=== PATIENT | male | born 1945 | race African-American/Black ===

== ENCOUNTER 2024-02-15 08:12 | Outpatient (CLI) | payer MEDICARE, OTHER ==
[~2024-02-15] VITALS: Ht 180.3 cm; Wt 84.4 kg
[2024-02-15] VITALS (11 sets, daily range): BP systolic 146–161; BP diastolic 73–86; PULSE 73–87; RESP 14–18; O2SAT 99–100
[2024-02-15] MEDS ORDERED: normal saline 500ml IV soln 500 ML IV ONE (09:25)
[2024-02-15] MEDS ORDERED: metoprolol tartrate 1mg/ml inj IV PRN (09:25)
[2024-02-15] MEDS ORDERED: nitroGLYCERIN 0.4mg SUBLingual tab SL PRN (09:25)
[2024-02-15] MEDS: regadenoson 0.4mg/5ml syringe IV ONE (10:56)
[2024-02-15] MEDS: aminophylline 250mg/10ml inj. IV PRN (10:56)
[2024-02-15] MEDS ORDERED: CARV25TA3 PO (12:46)
[2024-02-15] MEDS ORDERED: ROSU20TA73 PO (12:46)
[2024-02-15] MEDS ORDERED: FEBU80TA6 PO (12:46)
[2024-02-15] MEDS ORDERED: ACET-1025 PO (12:46)
[2024-02-15] MEDS ORDERED: FURO20TA4 PO (12:46)
[2024-02-15] MEDS ORDERED: HYDR100T12 PO (12:46)
[2024-02-15] MEDS ORDERED: PANT40TA54 PO (12:46)
[2024-02-15] MEDS ORDERED: DICLOFENAC (12:46)
[2024-02-15] MEDS ORDERED: FLUT1BLS9 (12:46)
== END 2024-02-15 23:59 | disposition home or self-care (01) ==
LOC: NM 08:12
PROVIDERS: ATTEND Internal Medicine Cardiovascular Disease
DX: R94.31 Abnormal electrocardiogram [ECG] [EKG] (principal)
CPT/HCPCS: 78452; 93017; A9500; J0280; J2785; J7040

== ENCOUNTER 2024-02-22 06:18 | Day surgery (SDC) | payer MEDICARE, OTHER ==
[2024-02-22] VITALS (11 sets, daily range): BP systolic 134–155; BP diastolic 67–94; PULSE 69–82; RESP 9–19; TEMP 96.9; O2SAT 95–100
[~2024-02-22] VITALS: Ht 180.3 cm; Wt 82.0 kg
[2024-02-22] MEDS: cefazolin 2gm/D5W 100mL 100 ML IV ONE (05:30)
[2024-02-22] MEDS: tranexamic acid inj. 1,000 MG in normal saline IV soln 100ML IV ONE (05:30)
[~2024-02-22 06:18] MED LIST: ACET-1025 PO; CARV25TA3 PO; DICLOFENAC; DOCUMENT DATE & TIME OF BETA-BLOCKER PO ONE; FEBU80TA6 PO; FLUT1BLS9; FURO20TA4 PO; HYDR100T12 PO; PANT40TA54 PO; ROSU20TA73 PO
[2024-02-22] MEDS ORDERED: oxymetazoline 15 ML nasal spray NS ONE (06:43)
[2024-02-22] MEDS ORDERED: cocaine 4% topical solution 4ml bottle ONE (06:43)
[2024-02-22] MEDS ORDERED: LIDOcaine 1% W/epiNEPHrine 1:100,000 20ml vial ONE (06:43)
[2024-02-22] MEDS ORDERED: Thrombin (Bovine) 5,000 unit vial TP ONE (06:44)
[2024-02-22] MEDS ORDERED: mupirocin 2% ointment 22GM ONE (06:44)
[2024-02-22] MEDS ORDERED: epiNEPHrine 1 mg/ml 30ml MDV ONE (06:45)
[2024-02-22] MEDS: ringers solution, lacted 1,000 ML IV SCH (07:14)
[2024-02-22] MEDS: famotidine 20mg tablet PO ONE (07:14)
[2024-02-22] MEDS: oxymetazoline 15 ML nasal spray NS SCH (07:41)
[2024-02-22] MEDS ORDERED: fentaNYL/PF 50MCG/1 ML 2ML syringe ONE (08:30)
[2024-02-22] MEDS: LIDOcaine 1% W/epiNEPHrine 1:100,000 20ml vial IJ ONE (08:30)
[2024-02-22] MEDS ORDERED: sevoflurane 250ml liquid IH ONE (08:40)
[2024-02-22] MEDS ORDERED: morphine 2 MG/ML inj. syringe IV PRN (10:20)
[2024-02-22] MEDS ORDERED: proCHLORperazine 10 MG/2 ml inj IV PRN (10:20)
[2024-02-22] MEDS ORDERED: meperidine/PF 25mg/ml syringe IV PRN ×2 (10:20)
[2024-02-22] MEDS ORDERED: morphine 4 MG/ML inj SYRINge IV PRN (10:20)
[2024-02-22] MEDS ORDERED: ringers solution, lacted 1,000 ML IV SCH (10:20)
[2024-02-22] MEDS ORDERED: labetalol 20mg/4ml (5mg/ml) syringe IV PRN (10:20)
[2024-02-22] MEDS ORDERED: ondansetron/PF 4mg/2ml inj IV PRN (10:20)
[2024-02-22] MEDS ORDERED: enalaprilat dihydrate 2.5mg/2ml vial IV PRN (10:20)
[2024-02-22] MEDS: meperidine/PF 25mg/ml syringe IV PRN (10:47)
[2024-02-22] MEDS: mupirocin 2% nasal ointment 1gm UD NS ONE (11:45)
[2024-02-22] MEDS: salt irrigation nasal spray 45 ML SPRAY NS PRN (11:45)
[2024-02-22] MEDS ORDERED: mupirocin 2% nasal ointment 1gm UD NS SCH (20:00)
== END 2024-02-22 11:55 | disposition home or self-care (01) ==
LOC: PAS 06:18
PROVIDERS: ATTEND Otolaryngology
DX: J32.0 Chronic maxillary sinusitis (principal); J32.2 Chronic ethmoidal sinusitis; I10 Essential (primary) hypertension; E78.5 Hyperlipidemia, unspecified; J45.909 Unspecified asthma, uncomplicated; I25.2 Old myocardial infarction; M10.9 Gout, unspecified; I42.9 Cardiomyopathy, unspecified; M19.90 Unspecified osteoarthritis, unspecified site; Z85.46 Personal history of malignant neoplasm of prostate; Z79.899 Other long term (current) drug therapy; Z95.810 Presence of automatic (implantable) cardiac defibrillator; Z98.41 Cataract extraction status, right eye; Z98.42 Cataract extraction status, left eye; Z98.890 Other specified postprocedural states; Z88.2 Allergy status to sulfonamides
CPT/HCPCS: 31240; 31253; 31267; 82948; 87070; 87075; 87102; A4618; A6402; A7000; J0171; J0690; J1100; J2175; J2405; J2704; J3010; J3490; J7030; J7050; J7120; Z7506; Z7508; Z7512; Z7610; A6449

== ENCOUNTER 2025-06-05 08:01 | Day surgery (SDC) | payer MEDICARE, OTHER ==
[~2025-06-05] VITALS: Ht 180.3 cm; Wt 81.3 kg
[2025-06-05] VITALS (11 sets, daily range): BP systolic 120–148; BP diastolic 75–79; PULSE 68–73; RESP 10–16; TEMP 97; O2SAT 95–100
[2025-06-05] MEDS: tranexamic acid 1gm/0.7% sal. 100 ML IV ONE (05:30)
[2025-06-05] MEDS: DOCUMENT DATE & TIME OF BETA-BLOCKER PO ONE (05:30)
[2025-06-05] MEDS: ceFAZolin 2gm/dext,iso 50mL 50 ML IV ONE (05:30)
[~2025-06-05 08:01] MED LIST changes: -ACET-1025 PO; +AMIO200T76 PO; -DOCUMENT DATE & TIME OF BETA-BLOCKER PO ONE; -FEBU80TA6 PO; -FLUT1BLS9; +FLUT1BLS9 PO; +LIDOcaine 1% W/epiNEPHrine 1:100,000 20ml vial ONE; -ROSU20TA73 PO; +ROSU20TA98 PO; +epiNEPHrine 1 mg/ml 30ml MDV ONE; +methylPREDNISolone acetate 80mg/ml inj**IM only ONE; +oxymetazoline 15 ML nasal spray NS ONE
[2025-06-05] MEDS ORDERED: LIDOcaine 1% W/epiNEPHrine 1:100,000 20ml vial ONE (08:58)
[2025-06-05] MEDS ORDERED: epiNEPHrine 1 mg/ml 30ml MDV ONE (09:01)
[2025-06-05] MEDS ORDERED: oxymetazoline 15 ML nasal spray NS ONE (09:05)
[2025-06-05] MEDS: ringers solution, lacted 1,000 ML IV SCH (09:44)
[2025-06-05] MEDS: oxymetazoline 15 ML nasal spray NS SCH (09:54)
[2025-06-05] MEDS ORDERED: fentaNYL/PF 50MCG/1 ML 2ML syringe ONE (10:18)
[2025-06-05] MEDS ORDERED: dexamethasone sod phosphate 4mg/ml inj. ONE (10:36)
[2025-06-05] MEDS ORDERED: ondansetron/PF 4mg/2ml inj ONE (10:36)
[2025-06-05] MEDS ORDERED: midazolam 1 mg/ML 2ml injection ONE (10:36)
[2025-06-05] MEDS ORDERED: LIDOcaine 2% (20mg/ml) 5ml vial ONE (10:36)
[2025-06-05] MEDS ORDERED: propofol inj 20 ML IV ONE (10:36)
[2025-06-05] MEDS ORDERED: ePHEDrine 50MG/ML INJ. ONE (11:29)
[2025-06-05] MEDS ORDERED: hydrALAZINE 20mg/ml inj. IV PRN (11:45)
[2025-06-05] MEDS ORDERED: ondansetron/PF 4mg/2ml inj IV PRN (11:45)
[2025-06-05] MEDS ORDERED: labetalol 20mg/4ml (5mg/ml) syringe IV PRN (11:45)
[2025-06-05] MEDS ORDERED: HYDROmorphone/PF 0.2 MG/ML SYRINGE IV PRN ×2 (11:45)
[2025-06-05] MEDS ORDERED: ringers solution, lacted 1,000 ML IV SCH (11:45)
[2025-06-05] MEDS: morphine 4 MG/ML inj SYRINge IV PRN (12:00)
[2025-06-05] MEDS: acetaminophen 1,000mg/100ml IV 100 ML IV PRN (12:00)
--- NOTE | 2025-06-05 12:02 | OPERATIVE REPORT ---
DATE OF SURGERY: 06/05/2025 DICTATING PHYSICIAN: Raphael Brannon MD DATE OF OPERATION: 06/05/2025. 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 PROCEDURES: 1. Nasal endoscopy surgical with left partial ethmoidectomy with removal of hyperplastic tissue. 2. Left medial maxillectomy with removal of left maxillary mass, probable pseudomoma. 3. Stereotactic computer-assisted navigational procedure extracranial. SURGEON: Raphael Brannon MD ANESTHESIA: General laryngeal mask, Dr. Currie. HISTORY: The patient is a 79-year-old male with intractable purulent rhinorrhea from the left nasal cavity with facial pain and pressure. He has grown out Pseudomonas numerous times and a large mass was seen within the left maxillary sinus suggesting a left pseudomoma. This could be also a fungal ball. The patient is quite interesting in that he underwent surgery a year and a half ago for what was thought to be a fungal ball, but it turned out to be pure Pseudomonas in a calcified mass on pathology. The patient has been on immunoglobulin G replacement therapy since the first surgery. On physical examination, purulent secretions were seen coming from the left middle meatus. CT scan showed complete opacification of the left maxillary sinus extending into the left ethmoid. The risks, alternatives, and benefits of surgery were explained to the patient and accepted. PROCEDURE: The patient was brought to the operating room, given a general laryngeal mask anesthesia, and prepped and draped in the usual fashion. 1% Xylocaine with 1:100,000 epinephrine was infiltrated into the planned surgical site utilizing headlight and endoscope. Image-guided system was attached to the patient and calibration of verification satisfactorily accomplished. The reason we had chosen to carry out this procedure under image guidance was the presence of mass in close proximity to the orbit. First procedure to be carried out was a left partial ethmoidectomy. We entered the bulla ethmoidalis and microshaved away its lateral surface flush with the lamina papyracea. Purulent secretions and granulation tissue was found within the left ethmoid. We continued dissecting out the uncinate process and then carried out a left middle meatal maxillary antrostomy. A left middle medial maxillary antrostomy was carried out as follows. The uncinate was completely removed. A posterior fontanelle entry was made and this was connected up to the natural ostium creating a middle medial maxillary antrostomy through which debris of a greenish yellow hue was noted surrounded by pus. We removed as much as we could through the middle meatus, but still firm almost calcified debris was palpated and seen inferiorly in the sinus and despite efforts of irrigating this free, it could not be dislodged. Therefore, a left medial maxillectomy was carried out as follows: The middle one-third of the left inferior turbinate was microshaved and removed exposing the medial wall of the left maxillary sinus, which was drilled down using a 15-degree high-speed mathew qamar down to the floor of the nasal cavity, anterior to the nasolacrimal duct and posterior to the sphenopalatine branch and then a huge mass of greenish yellow debris quite solid in nature was removed from the maxillary sinus completely filling the inferior one-half. Irrigations were carried out until no further flecks of debris were encountered. We re-endoscoped using a 70-degree regular endoscope and no further collections were identified. Therefore, the surgery was terminated at this point. Hemostasis was intact. The left maxillary sinus was filled with PosiSep soaked in a dilute solution of Betadine and the ethmoid cavity filled with PosiSep soaked in Marcaine and thrombin. 2 cottonoids were placed in the left nasal cavity for pressure hemostasis. These were removed in the recovery room leaving the patient unpacked. The patient tolerated the procedure well with accompaniment of minimal blood loss. Raphael Brannon MD TID: [id number] RECEIPT: [id number] TERRI/UNIQUE
[2025-06-05] MEDS ORDERED: salt irrigation nasal spray 45 ML SPRAY NS PRN (13:20)
== END 2025-06-05 13:41 | disposition home or self-care (01) ==
LOC: PAS 08:01
PROVIDERS: ATTEND Otolaryngology
DX: J32.0 Chronic maxillary sinusitis (principal); J34.3 Hypertrophy of nasal turbinates; I10 Essential (primary) hypertension; J44.89 Other specified chronic obstructive pulmonary disease; J45.909 Unspecified asthma, uncomplicated; M10.9 Gout, unspecified; Z95.810 Presence of automatic (implantable) cardiac defibrillator; Z85.46 Personal history of malignant neoplasm of prostate
CPT/HCPCS: 30130; 31254; 31256; 61782; 82948; 87070; 87075; 87077; 87102; 87107; 87186; 88304; 88311; 88312; A4618; A6402; A7000; J0131; J0169; J1100; J2003; J2250; J2270; J2405; J2704; J3010; J3490; J7030; J7040; J7120; Z7506; Z7508; Z7512; Z7610; A6449; J1010